=== PATIENT | female | born 1950 | race African-American/Black ===

== ENCOUNTER 2017-02-05 18:16 | Emergency (ER) | payer SELFPAY ==
--- NOTE | 2017-02-05 18:23 | PDOC ---
Rapid Medical Evaluation Time Seen by Provider: 02/05/17 18:21 Medical Evaluation: 02/05/17 18:21 I have performed a brief in-person evaluation of this patient. The patient presents with a chief complaint of: suprapubic pain and dysuria Pertinent physical exam findings: ABD: suprapubic tenderness. No CVAT I have ordered the following: UA, urine cx The patient will proceed to the ED for further evaluation. Discharge Disposition - Diagnosis Abdominal pain - Referrals - Patient Instructions - Post Discharge Activity
[2017-02-05 18:28] VITALS: TEMP 98.2; BMI 33.9
--- NOTE | 2017-02-05 20:25 | PDOC ---
Attending Attestation - Resident Resident Name: Phong Combs - ED Attending Attestation I have performed the following: I have examined & evaluated the patient, The case was reviewed & discussed with the resident, I agree w/resident's findings & plan - HPI HPI: 02/05/17 22:46 Pt comes with dysuria. Fever that responded to tylenol at home. No other co,, - Physicial Exam PE: 02/06/17 19:41 Agree with resident exam - Medical Decision Making 02/06/17 19:41 Pt will be treated for UTI and vaginal candidiasis
[2017-02-05 20:31] VITALS: BP 157/80
--- NOTE | 2017-02-05 20:36 | PDOC ---
History of Present Illness - General Chief Complaint: Pain, Acute Stated Complaint: ABD PAIN Time Seen by Provider: 02/05/17 18:21 History Source: Patient, Family Exam Limitations: No Limitations - History of Present Illness Initial Comments: 02/05/17 20:30 Patient is a 66F with history of diet controlled DM and HTN here today complaining of pain with urination and associated suprapubic abdominal pain for the past day. She also complains of associated fevers and chills. She denies nausea, vomiting, and decreased PO intake. She denies pain in her upper abdomen and flank. She denies headache, chest pain, shortness of breath and cough. PCP: Shai Past History - Past Medical History Allergies/Adverse Reactions: Allergies Allergy/AdvReac Type Severity Reaction Status Date / Time No Known Allergies Allergy Verified 02/05/17 18:22 Home Medications: Ambulatory Orders Fluconazole 150 mg PO ONCE #1 tablet 02/05/17 Nitrofurantoin Monohyd/M-Cryst [Macrobid -] 100 mg PO BID #10 capsule 02/05/17 COPD: No Diabetes: Yes HTN: Yes - Surgical History Abdominal Surgery: No Appendectomy: No Cardiac Surgery: No - Suicide/Smoking/Psychosocial Hx Smoking History: Never smoked Information on smoking cessation initiated: No Hx Alcohol Use: No Drug/Substance Use Hx: No Substance Use Type: None Review of Systems - Review of Systems Comments:: 02/05/17 20:35 GENERAL/CONSTITUTIONAL: Positive for fevers and chills HEAD, EYES, EARS, NOSE AND THROAT: No change in vision. No sore throat. CARDIOVASCULAR: No chest pain or shortness of breath RESPIRATORY: No cough, wheezing, or hemoptysis. GASTROINTESTINAL: No nausea, vomiting, diarrhea or constipation. GENITOURINARY: Positive for pain with urination and suprapubic pain NEUROLOGIC: No headache, vertigo, loss of consciousness, or change in strength/ sensation. ENDOCRINE: No increased thirst. No abnormal weight change HEMATOLOGIC/LYMPHATIC: No anemia, easy bleeding, or history of blood clots. ALLERGIC/IMMUNOLOGIC: No hives or skin allergy. *Physical Exam - Vital Signs Last Vital Signs Temp Pulse Resp BP Pulse Ox 98.2 F 75 20 176/92 100 02/05/17 18:23 02/05/17 18:23 02/05/17 18:23 02/05/17 18:23 12/22/17 18:23 - Physical Exam Comments: 02/05/17 20:36 GENERAL: Awake, alert, and fully oriented, in no acute distress HEAD: No signs of trauma, normocephalic, atraumatic EYES: PERRLA, EOMI, sclera anicteric, conjunctiva clear ENT: Auricles normal inspection, hearing grossly normal, nares patent, oropharynx clear without exudates. Moist mucosa LUNGS: No distress, speaks full sentences, clear to auscultation bilaterally HEART: Regular rate and rhythm, normal S1 and S2, no murmurs, rubs or gallops, peripheral pulses normal and equal bilaterally. ABDOMEN: Suprapubic tenderness. No guarding, no rebound. No peritoneal signs EXTREMITIES: Normal inspection, Normal range of motion, no edema. No clubbing or cyanosis. NEUROLOGICAL: Cranial nerves II through XII grossly intact. Normal speech, no focal sensorimotor deficits SKIN: Warm, Dry, normal turgor, no rashes or lesions noted. ED Treatment Course - LABORATORY CBC & Chemistry Diagram: 02/05/17 20:18 02/05/17 20:18 Medical Decision Making - Medical Decision Making 02/05/17 20:38 Patient is a 66F with history of DM and HTN here today with dysuria and suprapubic tenderness. Afebrile, vital signs stable and normal. No CVA tenderness. No peritoneal signs on exam. Repeat blood pressure 157/80, patient reports taking her blood pressure medications today. Pharmacy called, on amlodpine, hctz and enalapril. Strongly suspect UTI, patient is good candidate for outpatient treatment with normal mental status and PCP follow up. Will evaluate with labs to confirm normal kidney function, will likely treat out keflex as outpatient. 02/05/17 22:47 Laboratory Tests 02/05/17 02/05/17 02/05/17 20:18 20:18 20:18 WBC 11.3 H Hgb 14.6 Hct 43.2 Plt Count 187 BUN 17 Creatinine 1.3 H Creat Clearance w eGFR 40.86 Urine Blood 2+ H Ur Leukocyte Esterase Trace H Urine WBC (Auto) 40 Urine RBC (Auto) 20 CBC shows small leukocytosis. Kidney function decreased, unknown baseline. Will advise for outpatient follow up with PCP. Will treat UTI with macrobid. Patient is deferring pelvic exam. Will treat possible yeast infection with fluconazole, with instructions to take after taking antibiotics. Will discharge with PCP follow up. *DC/Admit/Observation/Transfer Diagnosis at time of Disposition: UTI (urinary tract infection) - Discharge Dispostion Disposition: HOME Condition at time of disposition: Good Admit: No - Prescriptions Prescriptions: Fluconazole 150 mg PO ONCE #1 tablet Nitrofurantoin Monohyd/M-Cryst [Macrobid -] 100 mg PO BID #10 capsule - Referrals Referrals: Teresa Gibbons [Primary Care Provider] - - Patient Instructions Printed Discharge Instructions: DI for Urinary Tract Infection (UTI) Additional Instructions: Please see your primary care physician in the next week. Please return if you have any new, worsening or concerning symptoms, especially worsening abdominal pain and fever. Please take your antibiotics as directed. Your kidney function was decreased today, please follow up with your primary care physician. - Post Discharge Activity
[2017-02-05 20:47] LABS: BASO # 0.1 # (0.1-1); BASO % 0.5 % (0-2.0); EOS # 0.1 # (0-4.5); EOS % 0.7 % (0-4.5); LYMPH # 2.4 (8-40); MCHC 33.7 g/dl (32.0-36.0); MEAN CELL VOLUME 94.8 fl (80-96); MONO # 0.7 # (3.8-10.2); NEUT % 70.8 % (42.8-82.8); PLATELET COUNT 187 K/MM3 (134-434); RDW 13.5 % (11.6-15.6); WHITE BLOOD COUNT 11.3 K/mm3 (4.0-10.0)
[2017-02-05 20:48] LABS: URINE APPEARANCE CLEAR; URINE BILIRUBIN NEGATIVE (NEGATIVE); URINE BLOOD 2+ (NEGATIVE); URINE COLOR STRAW; URINE GLUCOSE (UA) NEGATIVE (NEGATIVE); URINE KETONE NEGATIVE (NEGATIVE); URINE NITRITE NEGATIVE (NEGATIVE); URINE PROTEIN NEGATIVE (NEGATIVE); URINE UROBILINOGEN NEGATIVE mg/dL (0.2-1.0)
[2017-02-05 20:54] LABS: URINE LEUK ESTERASE 1+ (NEGATIVE)
[2017-02-05 21:12] LABS: ALBUMIN 3.8 g/dl (3.4-5.0); ANION GAP 7 (8-16); CALCIUM 9.3 mg/dL (8.5-10.1); CO2 32 mmol/L (21-32); CREATININE 1.3 mg/dL (0.55-1.02); GLUCOSE,RANDOM 171 mg/dL (74-106); SGOT/AST 14 U/L (15-37); SGPT/ALT 23 U/L (12-78)
[2017-02-05 21:14] LABS: ALK PHOS 79 U/L (45-117); BILIRUBIN,TOTAL 0.3 mg/dL (0.2-1.0)
[2017-02-05 21:15] LABS: URINE MUCUS RARE; URINE RBC 20 /hpf (0-3); URINE WBC 40 /hpf (3-5)
[2017-02-05 22:00] LABS: URINE LEUK ESTERASE TRACE (NEGATIVE)
[2017-02-05] MEDS ORDERED: FLUCONAZOLE 50 MG TABLET PO ONE (22:44)
[2017-02-05] MEDS ORDERED: NITROFURANTOIN MACROCRYSTAL 50 MG CAPSULE (FP) PO SCH (22:45)
[2017-02-05] MEDS ORDERED: NITROFURANTOIN MACROCRYSTAL 50 MG CAPSULE (FP) ONE (23:06)
[2017-02-05] MEDS ORDERED: FLUCONAZOLE 100 MG TABLET (UD) ONE (23:07)
[2017-02-05 23:18] VITALS: PULSE 68
== END 2017-02-05 23:18 | disposition home or self-care (01) ==
LOC: JER 18:16
DX: N39.0 Urinary tract infection, site not specified (principal); B96.20 Unspecified Escherichia coli [E. coli] as the cause of diseases classified elsewhere; B37.3 Candidiasis of vulva and vagina
CPT/HCPCS: 36415; 80053; 81003; 81015; 83690; 85025; 87086; 87186; 99283-25

== ENCOUNTER 2020-12-27 22:24 | Inpatient (IN) | payer SELFPAY ==
[2020-12-27] MEDS ORDERED: MAGNESIUM SULF 50% (8.12 MEQ/2 ML-1 GM VIAL) IVPB ONE ×2 (22:48→23:32)
[2020-12-27] MEDS ORDERED: MAGNESIUM SULFATE IN WATER 2 GM/50 ML IVPB IVPB ONE (22:59)
[2020-12-27] MEDS ORDERED: LACTATED RINGERS SOLUTION 1000 ML INFUS.BAG IV ONE (23:00)
[2020-12-27] MEDS ORDERED: MAG HYDROX/AL HYDROX/SIMETH 30 ML UNIT-DOSE CUP PO ONE (23:06)
[2020-12-27] MEDS ORDERED: FAMOTIDINE 20 MG/50 ML IVPB 20 MG/50 ML MG IVPB ONE ×2 (23:06→23:26)
[2020-12-27] MEDS ORDERED: LIDOCAINE VISCOUS 2% ORAL/TOP 15 ML UNIT-DOSE CUP MM ONE (23:07)
[2020-12-27] MEDS ORDERED: dilTIAZem HCL 50 MG/10 ML - 10 ML VIAL IVPUSH ONE (23:18)
[2020-12-27] MEDS ORDERED: LIDOCAINE VISCOUS 2% ORAL/TOP 15 ML UNIT-DOSE CUP ONE (23:25)
[2020-12-27] MEDS ORDERED: MAG HYDROX/AL HYDROX/SIMETH 30 ML UNIT-DOSE CUP ONE (23:26)
[2020-12-27] MEDS ORDERED: dilTIAZem HCL 125 MG/25 ML - 25 ML VIAL ONE (23:26)
[2020-12-27] MEDS ORDERED: dilTIAZem HCL 30 MG TABLET PO ONE (23:38)
[2020-12-27 23:54] LABS: EOS % 1.8 % (0-4.5); HEMATOCRIT 42.9 % (32.4-45.2); LYMPH % 38.2 % (8-40); MCH 32.6 pg (25.7-33.7); MCHC 35.1 g/dl (32.0-36.0); MEAN CELL VOLUME 92.9 fl (80-96); MONO % 8.7 % (3.8-10.2); NEUT % 50.3 % (42.8-82.8); PLATELET COUNT 196 10^3/uL (134-434); RBC 4.62 M/mm3 (3.60-5.2); RDW 12.8 % (11.6-15.6)
[2020-12-28 00:25] LABS: CHLORIDE 106 mmol/L (98-107); SODIUM 140 mmol/L (136-145)
[2020-12-28 00:27] LABS: ALBUMIN 3.7 g/dl (3.4-5.0); ANION GAP 7 MMOL/L (8-16); CO2 27 mmol/L (21-32)
[2020-12-28 00:28] LABS: GLUCOSE,RANDOM 209 mg/dL (74-106)
[2020-12-28 00:30] LABS: SGPT/ALT 22 U/L (13-61)
[2020-12-28 00:31] LABS: CREATININE 1.6 mg/dL (0.55-1.3); SGOT/AST 17 U/L (15-37)
[2020-12-28 00:32] LABS: BILIRUBIN,TOTAL 0.2 mg/dL (0.2-1); TOT PROT 7.8 g/dl (6.4-8.2)
[2020-12-28 00:33] LABS: ALK PHOS 87 U/L (45-117)
[2020-12-28] MEDS ORDERED: dilTIAZem HCL 30 MG TABLET ONE (00:50)
[2020-12-28] MEDS ORDERED: MAGNESIUM SULFATE IN WATER 2 GM/50 ML IVPB IVPB ONE (00:50)
[2020-12-28 02:55] LABS: LIPASE 117 U/L (73-393)
[2020-12-28 02:58] LABS: TRIGLYCERIDES 194 mg/dL (0-150)
[2020-12-28] MEDS ORDERED: HEPARIN - 25,000 UNIT in SODIUM CHLORIDE 495 ML IV SCH (03:00)
[2020-12-28] MEDS ORDERED: HEPARIN NA (PORCINE) 5,000 UNITS/ML 1ML VIAL IVPUSH PRN ×2 (03:00)
[2020-12-28 05:07] VITALS: BMI 34.7
[2020-12-28] MEDS: INSULIN SLIDING SCALE (NOVOLOG) 1 VIAL SQ SCH ×4 (06:19→22:17)
[2020-12-28 07:30] LABS: BASO % 0.7 % (0-2.0); HEMATOCRIT 43.3 % (32.4-45.2); HEMOGLOBIN 15.1 GM/dL (10.7-15.3); LYMPH % 37.3 % (8-40); MCH 33.2 pg (25.7-33.7); MCHC 34.8 g/dl (32.0-36.0); MEAN CELL VOLUME 95.2 fl (80-96); MEAN PLT VOLUME 10.7 fl (7.5-11.1); MONO % 8.3 % (3.8-10.2); NEUT % 52.7 % (42.8-82.8); PLATELET COUNT 195 10^3/uL (134-434); RBC 4.55 M/mm3 (3.60-5.2); RDW 12.8 % (11.6-15.6); WHITE BLOOD COUNT 9.5 K/mm3 (4.0-10.0)
[2020-12-28 07:32] LABS: CHLORIDE 107 mmol/L (98-107); SODIUM 141 mmol/L (136-145)
[2020-12-28 07:34] LABS: ANION GAP 5 MMOL/L (8-16); BLOOD UREA NITROGEN 17.5 mg/dL (7-18); CALCIUM 8.8 mg/dL (8.5-10.1); CO2 29 mmol/L (21-32)
[2020-12-28 07:35] LABS: GLUCOSE,RANDOM 155 mg/dL (74-106); MAGNESIUM 2.9 mg/dL (1.8-2.4)
[2020-12-28 07:38] LABS: CHOLESTEROL 124 mg/dL (50-200); PHOSPHOROUS 3.5 mg/dL (2.5-4.9); TRIGLYCERIDES 106 mg/dL (0-150)
[2020-12-28 07:39] LABS: LDL CHOLESTEROL (ONLY SJRH) 69 mg/dL (5-100)
[2020-12-28 07:40] LABS: HDL CHOLESTEROL 41 mg/dL (40-60)
[2020-12-28 07:46] LABS: CREATININE 1.1 mg/dL (0.55-1.3)
[2020-12-28] MEDS: PANTOPRAZOLE 40 MG TABLET PO SCH (09:31)
[2020-12-28] MEDS: ENALAPRIL MALEATE 10 MG TABLET PO SCH (09:31)
[2020-12-28] MEDS: APIXABAN 5 MG TABLET PO SCH ×2 (09:31→22:15)
[2020-12-28] MEDS ORDERED: METOPROLOL TARTRATE 25 MG TABLET (FP) PO SCH (10:00)
[2020-12-28] MEDS ORDERED: APIXABAN 5 MG TABLET PO SCH (10:00)
[2020-12-28 15:31] LABS: EPI CELLS 8 /uL (0-25.1); HYALINE CASTS 0 /uL (0-3.1); URINE APPEARANCE CLEAR; URINE BACTERIA 179 /uL (0-1359); URINE BILIRUBIN NEGATIVE (NEGATIVE); URINE COLOR YELLOW; URINE GLUCOSE (UA) NEGATIVE (NEGATIVE); URINE KETONE NEGATIVE (NEGATIVE); URINE LEUK ESTERASE 1+ (NEGATIVE); URINE NITRITE NEGATIVE (NEGATIVE); URINE PROTEIN NEGATIVE (NEGATIVE); URINE RBC 3 /uL (0-23.9); URINE UROBILINOGEN 0.2 mg/dL (0.2-1.0); URINE WBC 66 /uL (0-25.8)
[2020-12-28] MEDS ORDERED: ATORVASTATIN CA 20 MG TABLET (FP) ONE (21:01)
[2020-12-28] MEDS: ATORVASTATIN CA 40 MG TABLET (FP) PO SCH (22:14)
[2020-12-28] MEDS: METOPROLOL TARTRATE 50 MG TABLET (FP) PO SCH (22:15)
[2020-12-29] MEDS: INSULIN SLIDING SCALE (NOVOLOG) 1 VIAL SQ SCH ×4 (06:00→21:28)
[2020-12-29] MEDS: ENALAPRIL MALEATE 10 MG TABLET PO SCH (10:54)
[2020-12-29] MEDS: PANTOPRAZOLE 40 MG TABLET PO SCH (10:54)
[2020-12-29] MEDS: METOPROLOL TARTRATE 50 MG TABLET (FP) PO SCH ×2 (10:54→21:28)
[2020-12-29] MEDS: APIXABAN 5 MG TABLET PO SCH ×2 (10:54→21:27)
[2020-12-29 18:18] LABS: ALBUMIN 3.4 g/dl (3.4-5.0); CALCIUM 8.6 mg/dL (8.5-10.1)
[2020-12-29 18:19] LABS: BLOOD UREA NITROGEN 19.7 mg/dL (7-18); MAGNESIUM 2.4 mg/dL (1.8-2.4)
[2020-12-29 18:22] LABS: CREATININE 1.5 mg/dL (0.55-1.3)
[2020-12-29 18:23] LABS: BILIRUBIN,TOTAL 0.7 mg/dL (0.2-1); TOT PROT 7.2 g/dl (6.4-8.2)
[2020-12-29] MEDS: ATORVASTATIN CA 40 MG TABLET (FP) PO SCH (21:27)
[2020-12-30] MEDS: INSULIN SLIDING SCALE (NOVOLOG) 1 VIAL SQ SCH ×4 (06:10→21:46)
[2020-12-30 07:11] LABS: HEMOGLOBIN 13.3 GM/dL (10.7-15.3); MCH 33.3 pg (25.7-33.7); MEAN CELL VOLUME 95.2 fl (80-96); MEAN PLT VOLUME 10.5 fl (7.5-11.1); PLATELET COUNT 172 10^3/uL (134-434); RBC 3.99 M/mm3 (3.60-5.2); RDW 12.8 % (11.6-15.6); WHITE BLOOD COUNT 7.8 K/mm3 (4.0-10.0)
[2020-12-30 07:36] LABS: ALBUMIN 3.1 g/dl (3.4-5.0); BLOOD UREA NITROGEN 22.3 mg/dL (7-18); CALCIUM 8.4 mg/dL (8.5-10.1); MAGNESIUM 2.4 mg/dL (1.8-2.4)
[2020-12-30 07:40] LABS: CREATININE 1.3 mg/dL (0.55-1.3)
[2020-12-30 07:41] LABS: BILIRUBIN,TOTAL 0.7 mg/dL (0.2-1); TOT PROT 6.5 g/dl (6.4-8.2)
[2020-12-30] MEDS: PANTOPRAZOLE 40 MG TABLET PO SCH (09:01)
[2020-12-30] MEDS: METOPROLOL TARTRATE 50 MG TABLET (FP) PO SCH (09:01)
[2020-12-30] MEDS: ENALAPRIL MALEATE 10 MG TABLET PO SCH (09:01)
[2020-12-30] MEDS: APIXABAN 5 MG TABLET PO SCH ×2 (09:01→21:46)
[2020-12-30] MEDS: ATORVASTATIN CA 40 MG TABLET (FP) PO SCH (21:46)
[2020-12-31] MEDS: INSULIN SLIDING SCALE (NOVOLOG) 1 VIAL SQ SCH ×3 (06:21→16:49)
[2020-12-31 08:53] LABS: HEMATOCRIT 40.3 % (32.4-45.2); HEMOGLOBIN 14.2 GM/dL (10.7-15.3); MCH 33.6 pg (25.7-33.7); MCHC 35.2 g/dl (32.0-36.0); MEAN CELL VOLUME 95.6 fl (80-96); MEAN PLT VOLUME 10.3 fl (7.5-11.1); PLATELET COUNT 179 10^3/uL (134-434); RBC 4.22 M/mm3 (3.60-5.2); RDW 12.9 % (11.6-15.6); WHITE BLOOD COUNT 7.1 K/mm3 (4.0-10.0)
[2020-12-31 09:29] LABS: BLOOD UREA NITROGEN 16.2 mg/dL (7-18); CALCIUM 9.2 mg/dL (8.5-10.1)
[2020-12-31 09:30] LABS: MAGNESIUM 2.3 mg/dL (1.8-2.4)
[2020-12-31 09:32] LABS: CREATININE 1.2 mg/dL (0.55-1.3)
[2020-12-31 09:34] LABS: BILIRUBIN,TOTAL 0.4 mg/dL (0.2-1); TOT PROT 7.7 g/dl (6.4-8.2)
[2020-12-31 09:38] LABS: ALBUMIN 3.9 g/dl (3.4-5.0)
[2020-12-31] MEDS: APIXABAN 5 MG TABLET PO SCH (10:11)
[2020-12-31] MEDS: PANTOPRAZOLE 40 MG TABLET PO SCH (10:11)
[2020-12-31] MEDS: ENALAPRIL MALEATE 10 MG TABLET PO SCH (10:11)
[2020-12-31] MEDS ORDERED: REGADENOSON 0.4 MG/5 ML PRE-FILLED SYRINGE IVPUSH ONE ×2 (12:13→12:45)
[2020-12-31 14:58] VITALS: BP 154/82; PULSE 61; TEMP 98.4
[2020-12-31] MEDS ORDERED: METOPROLOL TARTRATE 25 MG TABLET (FP) PO SCH (16:34)
== END 2020-12-31 17:29 | disposition home or self-care (01) | DRG 201 ==
LOC: JER 22:24 → JERBED 23:44 → OBSVTOIN 12-28 02:57 → EDBD 12-28 02:57 → J4S 12-28 04:40
PROVIDERS: ADMIT Internal Medicine; ATTEND Nurse Practitioner Acute Care
DX: I48.91 Unspecified atrial fibrillation (principal); E03.9 Hypothyroidism, unspecified; E66.9 Obesity, unspecified; Z68.34 Body mass index [BMI] 34.0-34.9, adult; E78.5 Hyperlipidemia, unspecified; R07.89 Other chest pain; N18.9 Chronic kidney disease, unspecified; I12.9 Hypertensive chronic kidney disease with stage 1 through stage 4 chronic kidney disease, or unspecified chronic kidney disease; E11.22 Type 2 diabetes mellitus with diabetic chronic kidney disease
CPT/HCPCS: 36415; 71046-TC-FY; 78452-TC; 80048; 80053; 80061; 80307; 81003; 82550; 82553; 82962; 83036; 83690; 83735; 84100; 84443; 84478; 84484; 85025; 85027; 85730; 87086; 93005; 93010; 93017; 93306-TC; 99285-25; A9502; C9803; G0378; J2785; U0003; U0005

== ENCOUNTER 2023-06-05 01:23 | Observation (INO) | payer BC, OTHER ==
[2023-06-05 02:13] LABS: BASO % 0.8 % (0-2.0); EOS % 1.3 % (0-4.5); HEMATOCRIT 41.2 % (32.4-45.2); HEMOGLOBIN 14.1 GM/dL (10.7-15.3); LYMPH % 41.9 % (8-40); MCH 33.2 pg (25.7-33.7); MCHC 34.2 g/dl (32.0-36.0); MEAN CELL VOLUME 96.9 fl (80-96); MONO % 8.5 % (3.8-10.2); NEUT % 47.5 % (42.8-82.8); PLATELET COUNT 154 10^3/uL (134-434); RBC 4.25 M/mm3 (3.60-5.2); RDW 13.2 % (11.6-15.6); WHITE BLOOD COUNT 7.3 K/mm3 (4.0-10.0)
[2023-06-05 02:29] LABS: INR 1.25 (0.83-1.09); PROTHROMBIN TIME (PATIENT) 14.5 SEC (9.7-13.0)
[2023-06-05 02:31] LABS: ACTIVATED PTT 30.6 SECONDS (25.2-36.5)
[2023-06-05 02:35] LABS: POTASSIUM 3.9 mmol/L (3.5-5.1)
[2023-06-05 02:38] LABS: ALBUMIN 3.5 g/dl (3.4-5.0); BLOOD UREA NITROGEN 17.7 mg/dL (7-18)
[2023-06-05 02:41] LABS: CREATININE 1.4 mg/dL (0.55-1.3)
[2023-06-05 02:42] LABS: TOT PROT 7.1 g/dl (6.4-8.2)
[2023-06-05 02:43] LABS: BILIRUBIN,TOTAL 0.2 mg/dL (0.2-1)
[2023-06-05 02:46] LABS: N-TERMINAL BNP 722.7 pg/ml (5-125)
[2023-06-05] MEDS ORDERED: ACETAMINOPHEN INJECTION 100 ML IVPB ONE (03:07)
[2023-06-05] MEDS: ACETAMINOPHEN 1000 MG/100 ML BAG IVPB ONE (03:10)
[2023-06-05] MEDS ORDERED: FUROSEMIDE 20 MG TABLET (FP) ONE (10:17)
[2023-06-05] MEDS: CARVEDILOL 12.5 MG TABLET (FP) PO SCH (10:25)
[2023-06-05] MEDS: APIXABAN 5 MG TABLET PO SCH (10:25)
[2023-06-05] MEDS: EMPAGLIFLOZIN (JARDIANCE) 10 MG TABLET PO SCH (10:25)
[2023-06-05] MEDS: FUROSEMIDE 20 MG TABLET (FP) PO ONE (10:25)
[2023-06-05] MEDS: amLODIPine BESYLATE 2.5 MG TABLET (FP) PO SCH (10:25)
[2023-06-05] MEDS ORDERED: PANTOPRAZOLE 40 MG TABLET PO ONE (10:30)
[2023-06-05] MEDS: PANTOPRAZOLE 40 MG TABLET PO SCH (10:33)
[2023-06-05] MEDS: metFORMIN HCL 500 MG TABLET (FP) PO SCH (17:22)
[2023-06-05 18:20] VITALS: BMI 34.0
[2023-06-05] MEDS: ATORVASTATIN CA 40 MG TABLET (FP) PO SCH (21:30)
[2023-06-06 05:14] VITALS: RESP 18
[2023-06-06 08:14] LABS: INR 1.28 (0.83-1.09); PROTHROMBIN TIME (PATIENT) 14.8 SEC (9.7-13.0)
[2023-06-06 08:17] LABS: ACTIVATED PTT 31.9 SECONDS (25.2-36.5)
[2023-06-06 08:31] LABS: POTASSIUM 4.1 mmol/L (3.5-5.1)
[2023-06-06 08:38] LABS: BASO % 0.6 % (0-2.0); EOS % 1.4 % (0-4.5); HEMOGLOBIN 14.1 GM/dL (10.7-15.3); LYMPH % 36.7 % (8-40); MCH 33.5 pg (25.7-33.7); MCHC 34.4 g/dl (32.0-36.0); MEAN CELL VOLUME 97.4 fl (80-96); MEAN PLT VOLUME 10.5 fl (7.5-11.1); MONO % 8.3 % (3.8-10.2); PLATELET COUNT 156 10^3/uL (134-434); RBC 4.21 M/mm3 (3.60-5.2); RDW 13.3 % (11.6-15.6); WHITE BLOOD COUNT 6.3 K/mm3 (4.0-10.0)
[2023-06-06 08:55] LABS: ALBUMIN 3.3 g/dl (3.4-5.0); BLOOD UREA NITROGEN 16.2 mg/dL (7-18); CALCIUM 9.4 mg/dL (8.5-10.1); MAGNESIUM 2.1 mg/dL (1.8-2.4)
[2023-06-06 08:58] LABS: PHOSPHOROUS 5.2 mg/dL (2.5-4.9)
[2023-06-06 08:59] LABS: BILIRUBIN,TOTAL 0.4 mg/dL (0.2-1); CREATININE 1.1 mg/dL (0.55-1.3)
[2023-06-06 09:01] LABS: TOT PROT 6.7 g/dl (6.4-8.2)
[2023-06-06] MEDS: ENALAPRIL MALEATE 10 MG TABLET PO SCH (11:28)
[2023-06-06] MEDS: CARVEDILOL 12.5 MG TABLET (FP) PO ONE (13:34)
[2023-06-06] MEDS: SODIUM CHLORIDE 250 ML IV STA (14:02)
[2023-06-06 18:15] VITALS: BP 111/74; PULSE 92; TEMP 98.2
[2023-06-06] MEDS ORDERED: CARVEDILOL 25 MG TABLET (FP) PO SCH (22:00)
== END 2023-06-06 18:21 | disposition home or self-care (01) ==
LOC: JER 01:23 → JERBED 05:01 → J4W 17:08
PROVIDERS: ADMIT Internal Medicine; ATTEND Internal Medicine
PROC: 3E033NZ Introduction of Analgesics, Hypnotics, Sedatives into Peripheral Vein, Percutaneous Approach (ICD-10-PCS; principal; 2023-06-05)
PROC: 3E0337Z Introduction of Electrolytic and Water Balance Substance into Peripheral Vein, Percutaneous Approach (ICD-10-PCS; 2023-06-05)
DX: I48.91 Unspecified atrial fibrillation (principal); E11.22 Type 2 diabetes mellitus with diabetic chronic kidney disease; I12.9 Hypertensive chronic kidney disease with stage 1 through stage 4 chronic kidney disease, or unspecified chronic kidney disease; N18.9 Chronic kidney disease, unspecified; E78.5 Hyperlipidemia, unspecified
CPT/HCPCS: 36415; 71045-TC-FY; 80053; 83735; 83880; 84100; 84484; 85025; 85610; 85730; 93005; 93010; 96361; 96374; 99285-25; G0378; J0131